=== PATIENT | male | born 1980 | race Hispanic/Latino ===

== ENCOUNTER 2024-09-23 20:20 | Emergency (ER) | payer OTHER ==
[~2024-09-23] VITALS: Ht 165.1 cm; Wt 68.0 kg
[2024-09-23 20:22] VITALS: BP 122/72; PULSE 57; RESP 16; TEMP 98.9
[2024-09-23] MEDS: ketOROlac 30MG VIAL (30MG/ML) IM ONE (20:55)
[2024-09-23] MEDS ORDERED: NAPR-1505 PO (21:23)
== END 2024-09-23 21:41 | disposition home or self-care (01) ==
LOC: EDH 20:20
DX: S93.492A Sprain of other ligament of left ankle, initial encounter (principal); S50.01XA Contusion of right elbow, initial encounter; W01.0XXA Fall on same level from slipping, tripping and stumbling without subsequent striking against object, initial encounter; Y93.01 Activity, walking, marching and hiking; Y92.89 Other specified places as the place of occurrence of the external cause; Y99.8 Other external cause status
CPT/HCPCS: 99284; 73610; 73080; 96372; J1885